=== PATIENT | female | born 1970 | race Caucasian/White ===

== ENCOUNTER 2020-10-13 07:04 | Inpatient (IN) | payer OTHER ==
[2020-10-12 15:31] LABS: BASOPHILS % (AUTO) 1 % (0-1); EOSINOPHILS % (AUTO) 2 % (1-7); LYMPHOCYTES % (AUTO) 37 % (22-44); MEAN CORPUSCULAR HGB CONC 34.5 g/dL (32.4-35.8); MEAN PLATELET VOLUME 7.4 fL (7.4-10.4); MONOCYTES % (AUTO) 8 % (2-9); NEUTROPHILS % (AUTO) 51 % (42-75); PLATELET COUNT 204 x10^3/uL (130-400); RED BLOOD COUNT 4.39 x10^6/uL (3.82-5.3); RED CELL DISTRIBUTION WIDTH 12.9 % (9.6-15.2)
[2020-10-12 15:39] LABS: ALBUMIN 3.8 g/dL (3.4-5.0); ANION GAP 5 mmol/L (5-15); CALCIUM 9.1 mg/dL (8.5-10.1); CHLORIDE 110 mmol/L (98-107); CREATININE 0.71 mg/dL (0.55-1.02); TOTAL IRON BINDING CAPACITY 387 mcg/dL (250-450)
[2020-10-12 16:05] LABS: % IRON SATURATION 21 % (20-55); ALANINE AMINOTRANSFERASE 67 U/L (12-78); ALKALINE PHOSPHATASE 120 U/L (45-117); BILIRUBIN,TOTAL 0.4 mg/dL (0.2-1.0); IRON LEVEL 81 mcg/dL (50-170); PREALBUMIN 10.5 mg/dL (20.0-40.0); TOTAL PROTEIN 7.3 g/dL (6.4-8.2); TRANSFERRIN 308 mg/dL (200-360)
[~2020-10-13] VITALS: Ht 162.6 cm; Wt 98.6 kg
[~2020-10-13 07:04] MED LIST: 5-HY50CA PO; ALPR0.5T7 PO; BARIATRIC FUSION PO; BUPR150T22 PO; DEXL60CA2 PO; DOXE25CA PO; FAMO-79 PO; FD GARD PO; GLUC-146 PO; LOPE-114 PO; NIFE90TA PO; ONDA8TAB16 SL; VENL225T PO; [UNRECOGNIZED DRUG - OTHER] PO; [UNRECOGNIZED DRUG - OTHER] PO
[2020-10-13] MEDS ORDERED: BUPIVACAINE/PF 0.5% ONE (07:06)
[2020-10-13] MEDS ORDERED: EPINEPHRINE 1 MG/ML, 1ML ONE (07:06)
[2020-10-13] MEDS ORDERED: ACETAMINOPHEN 100 ML IVPB STA (07:18)
[2020-10-13] MEDS ORDERED: LIDOCAINE-MPF 1%, 2ML INFIL ONE (07:30)
[2020-10-13] MEDS ORDERED: SCOPOLAMINE 1MG PATCH TD ONE (07:30)
[2020-10-13] MEDS ORDERED: CHLORHEXIDINE 15 ML UDC PO ONE (07:30)
[2020-10-13] MEDS ORDERED: LACTATED RINGERS 1,000 ML IV SCH ×2 (07:30→12:00)
[2020-10-13] MEDS ORDERED: MIDAZOLAM 1 MG/ML, 2ML ONE (08:21)
[2020-10-13] MEDS ORDERED: FENTANYL PF 250 MCG/5ML ONE (08:22)
[2020-10-13] MEDS ORDERED: PROPOFOL 10 MG/ML, 20ML ONE (08:24)
[2020-10-13] MEDS ORDERED: ROCURONIUM 10MG/ML,5ML ONE (08:25)
[2020-10-13] MEDS ORDERED: LIDOCAINE-MPF 2% ,5ML ONE (08:25)
[2020-10-13] MEDS ORDERED: CEFAZOLIN 1,000 MG ONE ×2 (08:26)
[2020-10-13] MEDS ORDERED: ONDANSETRON 2MG/ML, 2ML ONE ×2 (08:27→12:25)
[2020-10-13] MEDS ORDERED: DEXAMETHASONE 4 MG/ML, 5ML ONE (08:27)
[2020-10-13] MEDS ORDERED: ONDANSETRON 2MG/ML, 2ML IVPush PRN ×2 (09:00→12:00)
[2020-10-13] MEDS ORDERED: OXYcodone 5 MG/5 ML ORAL.SOL UDC PO PRN (09:00)
[2020-10-13] MEDS ORDERED: hydrALAzine 20 MG/ML, 1ML IV PRN (09:00)
[2020-10-13] MEDS ORDERED: LABETALOL 5MG/ML, 20ML IV PRN (09:00)
[2020-10-13] MEDS ORDERED: PROMETHAZINE 25 MG/ML, 1ML IVPush PRN (09:00)
[2020-10-13] MEDS ORDERED: BUPIVACAINE/PF-EPI 0.5% 1:200K INFIL ONE (10:21)
[2020-10-13] MEDS ORDERED: KETOROLAC 30 MG/1 ML ONE (11:20)
[2020-10-13] MEDS ORDERED: SUGAMMADEX 200 MG/2 ML IVPush ONE (11:25)
[2020-10-13] MEDS ORDERED: FENTANYL PF 100 MCG/2ML ONE ×2 (11:55→12:24)
[2020-10-13] MEDS: FENTANYL PF 100 MCG/2ML IV PRN ×4 (11:56→12:33)
[2020-10-13] MEDS: METHOCARBAMOL 1,000 MG in DEXTROSE 5% 100 ML IV SCH ×2 (11:59→20:36)
[2020-10-13] MEDS ORDERED: hydrALAzine 20 MG/ML, 1ML IVPush PRN (12:00)
[2020-10-13] MEDS ORDERED: PHENOL THROAT SPRAY BOTTLE MM PRN (12:00)
[2020-10-13] MEDS ORDERED: ENALAPRILAT 1.25 MG/ML, 2ML IV PRN (12:00)
[2020-10-13] MEDS ORDERED: DIPHENHYDRAMINE 50 MG/ML, 1ML IV PRN (12:00)
[2020-10-13] MEDS ORDERED: PROMETHAZINE 12.5 MG SUPP PR PRN (12:00)
[2020-10-13] MEDS ORDERED: PROMETHAZINE 25 MG/ML, 1ML ONE (12:00)
[2020-10-13] MEDS ORDERED: PROMETHAZINE 25 MG/ML, 1ML IM PRN (12:00)
[2020-10-13] MEDS ORDERED: DIPHENHYDRAMINE 50 MG/ML, 1ML ONE (12:25)
[2020-10-13] MEDS ORDERED: MEPERIDINE/PF 25MG/ML,1ML ONE ×3 (12:34→13:08)
[2020-10-13] MEDS: MEPERIDINE/PF 25MG/0.5ML IVPush PRN ×3 (12:37→13:12)
[2020-10-13] MEDS ORDERED: DIAZEPAM 5 MG/ML, 2ML ONE (13:08)
[2020-10-13] MEDS: DIAZEPAM 5 MG/ML, 2ML IVPush PRN ×2 (13:14→13:29)
[2020-10-13] MEDS: FAMOTIDINE 20 MG/2 ML IVPush SCH ×2 (14:33→20:44)
[2020-10-13] MEDS: ACETAMINOPHEN 100 ML IVPB SCH (16:43)
[2020-10-13] MEDS: LORazepam 2 MG/ML, 1ML IV PRN (17:08)
[2020-10-13 20:16] VITALS: BP 135/85
[2020-10-13] MEDS: OXYcodone 5 MG/5 ML ORAL.SOL UDC PO PRN (20:43)
[2020-10-13] MEDS: LACTATED RINGERS 1,000 ML IV SCH (20:44)
[2020-10-14] MEDS: LORazepam 2 MG/ML, 1ML IV PRN (00:41)
[2020-10-14] MEDS: ACETAMINOPHEN 100 ML IVPB SCH (00:41)
[2020-10-14] MEDS: OXYcodone 5 MG/5 ML ORAL.SOL UDC PO PRN ×3 (00:41→09:59)
[2020-10-14 00:47] VITALS: BP 133/84
[2020-10-14] MEDS: LACTATED RINGERS 1,000 ML IV SCH ×4 (02:40→09:58)
[2020-10-14] MEDS: METHOCARBAMOL 1,000 MG in DEXTROSE 5% 100 ML IV SCH ×2 (03:59→12:06)
[2020-10-14 05:24] LABS: BASOPHILS % (AUTO) 1 % (0-1); EOSINOPHILS % (AUTO) 1 % (1-7); LYMPHOCYTES % (AUTO) 33 % (22-44); MEAN CORPUSCULAR HEMOGLOBIN 31.3 pg (27.0-34.8); MEAN CORPUSCULAR HGB CONC 34.6 g/dL (32.4-35.8); MEAN PLATELET VOLUME 7.4 fL (7.4-10.4); MONOCYTES % (AUTO) 10 % (2-9); NEUTROPHILS % (AUTO) 56 % (42-75); PLATELET COUNT 167 x10^3/uL (130-400); RED BLOOD COUNT 3.85 x10^6/uL (3.82-5.3); RED CELL DISTRIBUTION WIDTH 12.9 % (9.6-15.2)
[2020-10-14 05:38] LABS: ALBUMIN 2.8 g/dL (3.4-5.0); ANION GAP 3 mmol/L (5-15); CALCIUM 8.3 mg/dL (8.5-10.1); CHLORIDE 107 mmol/L (98-107)
[2020-10-14 07:18] VITALS: BP 128/84
[2020-10-14] MEDS ORDERED: OXYC5TAB98 PO (08:37)
[2020-10-14] MEDS ORDERED: ENOXAPARIN 40 MG/0.4 ML SQ SCH (09:00)
[2020-10-14] MEDS: FAMOTIDINE 20 MG/2 ML IVPush SCH (09:58)
[2020-10-14 12:48] VITALS: BP 141/87
[2020-10-14] MEDS ORDERED: DOXEPIN 25 MG CAPSULE PO SCH (21:00)
== END 2020-10-14 12:55 | disposition home or self-care (01) | DRG 328 ==
LOC: ORIP 07:04 → 4NE 15:51
PROVIDERS: ADMIT Thoracic Surgery (Cardiothoracic Vascular Surgery); ATTEND Thoracic Surgery (Cardiothoracic Vascular Surgery)
PROC: 0D164ZA Bypass Stomach to Jejunum, Percutaneous Endoscopic Approach (ICD-10-PCS; principal; 2020-10-13 09:30)
DX: K21.9 Gastro-esophageal reflux disease without esophagitis (principal); K66.0 Peritoneal adhesions (postprocedural) (postinfection); R13.10 Dysphagia, unspecified; Z20.822 Contact with and (suspected) exposure to COVID-19
CPT/HCPCS: 36415; J3490; S0020; 71046; 80048; 80053; 82040; 82306; 82607; 82728; 82746; 83540; 83550; 83970; 84134; 84425; 84466; 85025; 93005; G0378; J0131; J0171; J0690; J1100; J1650; J1885; J2175; J2250; J2405; J2550; J2704; J3010; J3360; J1200; J2060; J2800; J7120